=== PATIENT | female | born 1995 | race African-American/Black ===

== ENCOUNTER 2019-12-03 12:13 | Emergency (ER) | payer OTHER ==
--- NOTE | 2019-12-07 06:01 | EDM.PDOC ---
ED HPI GENERAL MEDICAL PROBLEM - General Chief Complaint: Laceration Stated Complaint: ER VISIT Time Seen by Provider: 12/03/19 12:48 Source of Information: Reports: Patient History Limitations: Reports: No Limitations - History of Present Illness INITIAL COMMENTS - FREE TEXT/NARRATIVE: States sustained small laceration to R lateral index finger on a broken glass while washing dishes. She denies injury elsewhere. She states that her tetanus is UTD. Onset Date: 12/03/19 Location: Reports: Upper Extremity, Right Quality: Reports: Sharp Severity: Mild Right Finger-Index Pain Score (Numeric/FACES): 2 - Related Data Allergies Allergy/AdvReac Type Severity Reaction Status Date / Time No Known Allergies Allergy Verified 12/03/19 12:32 Home Meds: Home Meds . [Unable to Verify Home Med List] 12/03/19 [History] Past Medical History - Past Health History Medical/Surgical History: Denies Medical/Surgical History Social & Family History - Tobacco Use Smoking Status *Q: Never Smoker - Recreational Drug Use Recreational Drug Use: No ED ROS GENERAL - Review of Systems Review Of Systems: Comprehensive ROS is negative, except as noted in HPI. ED EXAM, GENERAL - Physical Exam Exam: See Below Exam Limited By: No Limitations General Appearance: Alert, WD/WN, No Apparent Distress Extremities: Other (1 cm laceration noted to R medial index finger. It is quite superficial and approximates well.) Neurological: Alert, Oriented, CN II-XII Intact, Normal Cognition, Normal Gait, Normal Reflexes, No Motor/Sensory Deficits ED GENERAL MEDICAL PROCEDURES - Laceration/Wound Repair Right Medial Digit - 2nd (Index) Lac/wound length in cm: 1 Appearance: Subcutaneous Distal NVT: Neuro & Vascular Intact Skin Prep: Chlorhexidine (Hibiciens), Saline Closed with: Dermabond Course - Vital Signs Last Recorded V/S: Last Vital Signs Temp 36.9 C 12/03/19 12:13 Pulse 82 12/03/19 12:13 Resp 18 12/03/19 12:13 BP 134/80 12/03/19 12:13 Pulse Ox 100 12/03/19 12:13 Departure - Departure Time of Disposition: 13:00 Disposition: Home, Self-Care 01 Clinical Impression: Laceration - Discharge Information Instructions: Tissue Adhesive Wound Care, [id number] Referrals: PCP,None [Primary Care Provider] - Forms: ED Department Discharge Additional Instructions: Keep dry for 24 hours. Minimize movement of the finger, especially for the next 48 hours. Off work today and tomorrow, as you can't really do your job with a cut in that location. After tomorrow, it hopefully will be healing enough but if it is in any way open , you might want to wait. Sepsis Event Note - Evaluation Sepsis Screening Result: No Definite Risk - Assessment/Plan Plan: Keep dry for 24 hours. Minimize movement of the finger, especially for the next 48 hours. Off work today and tomorrow, as you can't really do your job with a cut in that location. After tomorrow, it hopefully will be healing enough but if it is in any way open , you might want to wait.
== END 2019-12-03 12:48 | disposition home or self-care (01) ==
LOC: VM.ED 12:13
DX: S61.210A Laceration without foreign body of right index finger without damage to nail, initial encounter (principal); W26.9XXA Contact with unspecified sharp object(s), initial encounter
CPT/HCPCS: 12001; 99282